=== PATIENT | male | born 1985 | race Hispanic/Latino ===

== ENCOUNTER 2017-08-23 04:41 | Emergency (ER) | payer SELFPAY ==
[~2017-08-23] VITALS: Ht 170.2 cm; Wt 77.1 kg
== END 2017-08-23 04:50 | disposition left against medical advice (07) ==
LOC: ER 04:41
DX: H57.11 Ocular pain, right eye (principal)

== ENCOUNTER 2017-08-26 13:28 | Emergency (ER) | payer SELFPAY ==
[~2017-08-26] VITALS: Ht 170.2 cm; Wt 77.1 kg
--- OUTSIDE RECORDS SUMMARY | 2017-08-26 13:32 | XMS REPORT | Continuity of Care Document ---
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 No 08/23/17 4:40am If yes, is advance directive on file with [facility]? No 08/23/17 4:40am If not on file with [facility] will patient provide a copy? No 08/23/17 4:40am Do you have a Directive to Physician? No 08/23/17 4:40am Do you have a Medical Power of Service Manager? No 08/23/17 4:40am Do you have an out of hospital Do Not Resuscitate Order? No 08/23/17 4:40am Do you have any special needs we should be aware of? No 08/23/17 4:40am Do you have a support person here with you today? Yes 08/23/17 4:40am Did patient receive Notice of Privacy Practices? Yes 08/23/17 4:40am Did patient receive patient rights and responsibilities? Yes 08/23/17 4:40am Problems No problem information available. Medications No medication information available. Social History No social history information available. Hospital Discharge Instructions No hospital discharge instruction information available. Plan of Care Discharge Date 08/23/17 4:50am Disposition LEFT AFTER MEDICAL SCREENING Condition at Discharge Stable Forms Provided Work/School Excuse Prescriptions See Medication Section Functional Status No functional status information available. Allergies, Adverse Reactions, Alerts No known allergies. Immunizations No immunization information available. Vital Signs Acute Vital Signs Vital Response Date/Time Height 5 ft 7 in 08/23/2017 4:50am Weight 170 lb 08/23/2017 4:50am Body Mass Index 26.6 kg/m^2 08/23/2017 4:50am Results No relevant diagnostic test, laboratory data and/or discharge summary information available. Procedures No procedure information available. Encounters Encounter Location Arrival/Admit Date Discharge/Depart Date Attending Provider Departed Emergency Room [facility] 08/23/17 4:41am 4:50am AICHA PEDERSEN MD
== END 2017-08-26 14:34 | disposition home or self-care (01) ==
LOC: FSED 13:31
DX: R30.0 Dysuria (principal); N34.3 Urethral syndrome, unspecified
CPT/HCPCS: 81003; 99282

== ENCOUNTER 2022-10-19 19:51 | Emergency (ER) | payer SELFPAY ==
[~2022-10-19] VITALS: Ht 170.2 cm; Wt 76.2 kg
[2022-10-19] MEDS ORDERED: LEVOFLOXACIN 500 MG TAB ONE (22:01)
[2022-10-19] MEDS ORDERED: LEVOFLOXACIN500 MG PO (22:13)
[2022-10-19] MEDS ORDERED: LISINOPRIL10 MG PO (22:14)
[2022-10-19] MEDS ORDERED: NAPROSYN500 MG PO (22:15)
[2022-10-19] MEDS ORDERED: LEVOFLOXACIN 500 MG TAB PO ONE (22:15)
[2022-10-19 22:22] VITALS: BP 176/119
== END 2022-10-19 22:22 | disposition home or self-care (01) ==
LOC: FSED 20:00
DX: R30.0 Dysuria (principal); N41.0 Acute prostatitis; M79.605 Pain in left leg; M79.604 Pain in right leg; I10 Essential (primary) hypertension; F17.210 Nicotine dependence, cigarettes, uncomplicated
CPT/HCPCS: 80048; 81003; 85025; 99283

== ENCOUNTER 2022-11-03 05:42 | Emergency (ER) | payer SELFPAY ==
[~2022-11-03] VITALS: Ht 170.2 cm; Wt 76.2 kg
[~2022-11-03 05:42] MED LIST: LEVOFLOXACIN500 MG PO; LISINOPRIL10 MG PO; NAPROSYN500 MG PO
[2022-11-03] MEDS ORDERED: ONDANSETRON HCL INJ 2MG/ML 2ML 2 MG/ML VIAL IV STA (05:50)
[2022-11-03] MEDS ORDERED: ACETAMINOPHEN 325 MG TAB ONE (05:51)
[2022-11-03] MEDS ORDERED: ONDANSETRON HCL 4 MG ORAL DISINTEGRATING TAB ONE (05:51)
[2022-11-03] MEDS ORDERED: SODIUM CHLORIDE 0.9% 1000ML 1,000 ML ONE (05:53)
[2022-11-03] MEDS ORDERED: ONDANSETRON HCL INJ 2MG/ML 2ML 2 MG/ML VIAL ONE (05:53)
[2022-11-03] MEDS ORDERED: SODIUM CHLORIDE 0.9% 1000ML 1,000 ML IV ONE (06:00)
[2022-11-03] MEDS ORDERED: ACETAMINOPHEN 325 MG TAB PO ONE (06:00)
[2022-11-03 06:52] LABS: BASOPHILS # (AUTO) 0.1 (0.0-0.1); BASOPHILS % 0.6 % (0.0-1.0); EOSINOPHILS % 0.3 % (0.0-6.0); HEMATOCRIT 47.4 % (38.2-49.6); HEMOGLOBIN 16.1 g/dL (14.0-18.0); LYMPHOCYTES # (AUTO) 0.5 (1.0-3.2); LYMPHOCYTES % 3.9 % (18.0-39.1); MEAN CORPUSCULAR HEMOGLOBIN 31.1 pg (28-32); MEAN CORPUSCULAR VOLUME 91.7 fL (81-99); MONOCYTES # (AUTO) 0.1 (0.2-0.8); MONOCYTES % 1.2 % (4.4-11.3); NEUTROPHILS # (AUTO) 10.7 (2.1-6.9); NEUTROPHILS % 93.4 % (38.7-80.0); PLATELET COUNT 230 x10e3/uL (140-360); RED BLOOD COUNT 5.17 x10e6/uL (4.3-5.7); RED CELL DISTRIBUTION WIDTH 11.5 % (11.7-14.4)
[2022-11-03 07:15] LABS: ALBUMIN 4.3 g/dL (3.5-5.0); ALBUMIN/GLOBULIN RATIO 1.1 (0.8-2.0); ANION GAP 15.7 mmol/L (8-16); CALCIUM 8.8 mg/dL (8.4-10.2); CREATININE, SERUM 1.2 mg/dL (0.72-1.25); POTASSIUM 3.7 mmol/L (3.5-5.1)
[2022-11-03] MEDS ORDERED: ONDANSETRON ODT4 MG PO (08:51)
== END 2022-11-03 09:00 | disposition home or self-care (01) ==
LOC: ER 05:50
DX: R10.13 Epigastric pain (principal); A08.4 Viral intestinal infection, unspecified; R50.9 Fever, unspecified; I10 Essential (primary) hypertension; Z20.822 Contact with and (suspected) exposure to COVID-19
CPT/HCPCS: 36415; 80053; 83690; 85025; 99284; J2405; J7030; U0002; Q0162

== ENCOUNTER 2024-02-23 21:04 | Emergency (ER) | payer OTHER ==
[~2024-02-23 21:04] MED LIST changes: +ACETAMINOPHEN-1 EAC4 PO; +DOXYCYCLINE HY100 MG PO; +LISINOPRIL5 MG PO; +ONDANSETRON ODT4 MG PO
== END 2024-02-23 21:55 | disposition left against medical advice (07) ==
LOC: ER 21:41
DX: S69.91XA Unspecified injury of right wrist, hand and finger(s), initial encounter (principal)

== ENCOUNTER 2024-02-24 19:27 | Emergency (ER) | payer OTHER ==
[~2024-02-24] VITALS: Ht 170.2 cm; Wt 77.1 kg
[2024-02-24] MEDS: KETOROLAC TROMETHAMINE 30 MG/ML VIAL IV STA (22:38)
[2024-02-24] MEDS: Vancomycin IV 2 GM in SODIUM CHLORIDE 0.9% 250ML 250 ML IV ONE (23:58)
[2024-02-25 01:00] VITALS: PULSE 60; RESP 18; TEMP 97.8
[2024-02-25] MEDS: SODIUM CHLORIDE 0.9% 1000ML 1,000 ML IV ONE (02:31)
[2024-02-25] MEDS: DIPHENHYDRAMINE HCL INJ 50 MG/ML VIAL IV ONE (02:31)
[2024-02-25] MEDS: HYDROCODONE/APAP 5MG-325MG TAB PO ONE (02:36)
[2024-02-25 03:41] VITALS: BP 149/96; PULSE 60; RESP 18; TEMP 98.6; O2SAT 98
== END 2024-02-25 03:41 | disposition other institution (70) ==
LOC: FSED 20:08
DX: L03.011 Cellulitis of right finger (principal); M65.141 Other infective (teno)synovitis, right hand; S61.254A Open bite of right ring finger without damage to nail, initial encounter; Y04.1XXA Assault by human bite, initial encounter; Y92.89 Other specified places as the place of occurrence of the external cause; I10 Essential (primary) hypertension
CPT/HCPCS: 80053; 85025; 96374; 96375; 99284; J1200; J1885; J2543; J7030; J7050